=== PATIENT | male | born 1960 | race Two or more races ===

== ENCOUNTER 2019-03-25 09:21 | Emergency (ER) | payer OTHER ==
[~2019-03-25] VITALS: Ht 172.7 cm; Wt 83.9 kg
--- NOTE | 2019-03-25 09:28 | NUR ---
ED Nurse Note: not found in waiting area.
--- NOTE | 2019-03-25 09:46 | NUR ---
ED Nurse Note: pt walked in with crutches and righr foot splint c/o right foot swelling and pain upioon walking started 1 month ago when he hurt himself on his work while pushing something on the ramp. pt stated he doesnt feel any pain now, pt was seen by dr doty and was advised to go to the ed for nicki for possible dvt on the right leg/foot. will continue to monitor.
--- NOTE | 2019-03-25 10:36 | Emergency Room Report ---
History of Present Illness General Chief Complaint: Lower Extremity Injury Source: Patient Present Illness HPI 58-year-old male who presented after increased right lower extremity swelling. Patient was noted to have prior history of calf injury to his right lower extremity and been walking with a boot. He noticed gradual onset of worsening swelling and discomfort to his right foot. He was having increased difficulty with ambulation. He denies any prior history of gout. He denies any alcohol use. He did not have any prior history of heart failure. He denies any shortness of breath.Patient is currently taking medications for discomfort and is being followed for Worker's Comp. injury. Patient had initial injury after pushing an object up a ramp. Allergies: Coded Allergies: No Known Allergies (Unverified , 03/25/19) Patient History Past Medical History: see triage record Reviewed Nursing Documentation: PMH: Agreed; PSxH: Agreed Nursing Documentation-PMH Past Medical History: No Stated History Review of Systems All Other Systems: negative except mentioned in HPI Physical Exam Vital Signs Date Time Temp Pulse Resp B/P (MAP) Pulse Ox O2 Delivery O2 Flow Rate FiO2 03/25/19 09:32 98.4 100 18 163/86 (111) 96 Room Air Sp02 EP Interpretation: reviewed, normal General Appearance: normal inspection, well appearing, no apparent distress, alert, GCS 15 Head: atraumatic ENT: normal ENT inspection, hearing grossly normal, normal voice Neck: normal inspection, full range of motion, supple, no bony tend Respiratory: normal inspection, lungs clear, normal breath sounds, no respiratory distress, no retraction, no wheezing Cardiovascular #1: regular rate, rhythm, no edema Gastrointestinal: normal inspection, normal bowel sounds, non tender, soft, no guarding, no hernia Genitourinary: no CVA tenderness Musculoskeletal: normal inspection, back normal, decreased range of motion - right foot, right leg edema, swelling Neurologic: normal inspection, alert, oriented x3, responsive, local [employer] III-XII nml as tested, speech normal Psychiatric: normal inspection, judgement/insight normal, mood/affect normal Medical Decision Making Diagnostic Impression: Primary Impression: Deep venous thrombosis ER Course Patient presented for right lower extremity pain and swelling. Differential diagnosis include was not limited to DVT, congestive heart failure, heat edema among others. Because of complexity of patient's case imaging studies were ordered. Duplex ultrasound of the right lower extremity showed evidence of multiple DVTs as well as calf muscle tear. Patient was noted to have some slight fluid in the area. Patient was noted to have a distal DVT. Because of patient's recent immobilization patient will be followed up with his workers comp physician. Patient given prescription for rivaroxaban and initial dose in the emergency department. Patient will be treated with anticoagulation at this time. He does not have any risk factors for current bleeding. He does not have any chest discomfort consistent with a pulmonary embolism. Patient is to return if worse. Last Vital Signs Date Time Temp Pulse Resp B/P (MAP) Pulse Ox O2 Delivery O2 Flow Rate FiO2 03/25/19 09:32 98.4 100 18 163/86 (111) 96 Room Air Status: improved Disposition: HOME, SELF-CARE Condition: Stable Scripts Rivaroxaban (XARELTO) 15 Mg Tablet 15 MG ORAL TWICE A DAY for 21 Days, MG 0 Refills Prov: Sage Fernandes MD 03/25/19 Sage Fernandes MD Mar 25, 2019 10:36
--- NOTE | 2019-03-25 10:45 | NUR ---
ED Nurse Note: pt was seen by carlos, po meds given as ordered. pt able to tolerate. will continue to monitor.
[2019-03-25 11:09] LABS: APPEARANCE,URINE CLEAR; BILIRUBIN, URINE NEGATIVE (NEGATIVE); COLOR,URINE PALE YELLOW; GLUCOSE, URINE (UA) NEGATIVE (NEGATIVE); KETONES,URINE NEGATIVE (NEGATIVE); LEUKOCYTE ESTERASE ,URINE NEGATIVE (NEGATIVE); NITRITE,URINE NEGATIVE (NEGATIVE); PH,URINE 8 (4.5-8.0); PROTEIN,URINE NEGATIVE (NEGATIVE); UROBILINOGEN,URINE NORMAL MG/DL (0.0-1.0)
[2019-03-25] MEDS ORDERED: XARELTO15 MG ORAL (12:29)
--- NOTE | 2019-03-25 12:35 | NUR ---
ED Nurse Note: pt medicatedf as ordered, able to take po meds. will continue to monitor.
[2019-03-25 12:41] VITALS: BP 150/80
--- NOTE | 2019-03-25 12:41 | NUR ---
ER DISCHARGE NOTE: Patient is cleared to be discharged per ERMD, pt is aox4, on room air, with stable vital signs. pt was given dc and prescription instructions, pt was able to verbalize understanding, pt id band removed without complications. pt is able to ambulate with steady gait. pt took all belongings.
[2019-03-25] MEDS ORDERED: Xarelto 15mg tab ORAL ONE (12:45)
--- NOTE | 2019-03-25 15:30 | Diagnostic Imaging Report ---
Indication: History of right leg pain. History recent injury right leg swelling Technique: Woodward scale duplex images of the right lower surely veins Comparison: And Findings: Acute thrombus is demonstrated within the peroneal and posterior tibial veins, resulting in noncompressibility and absence of Doppler flow. The anterior tibial vein is patent. A medial geniculate vein at the knee joint level also demonstrates thrombus, with resultant noncompressibility and absence of color Doppler flow. The popliteal, femoral, and common femoral veins all demonstrate absence of intraluminal thrombus. Normal compressibility is demonstrated. Normal phasic waveforms, demonstrating normal augmentation response and no evidence of valvular insufficiency A small cyst or other fluid collection is seen in the posterior medial calf soft tissues. Is seen Impression: Negative for evidence of right lower extremity common femoral, femoral, or popliteal deep vein thrombosis Positive for calf vein thrombosis of the peroneal and posterior tibial veins. Thrombus is also demonstrated within a medial geniculate vein Fluid collection in the proximal medial calf soft tissues, etiology/significance uncertain
== END 2019-03-25 12:41 | disposition home or self-care (01) ==
LOC: EMR 10:09
DX: I82.4Z1 Acute embolism and thrombosis of unspecified deep veins of right distal lower extremity (principal)
CPT/HCPCS: 81003; 93971; 99283